=== PATIENT | female | born 2005 | race Caucasian/White ===

== ENCOUNTER → 2024-11-30 | Outpatient (CLI) | payer BC, SELFPAY ==
[2024-11-30 08:52] LABS: Collection Type, Urine Clean Catch
[2024-11-30 09:47] LABS: Amorphous Crystals,Urine Present (Absent); Bacteria,Urine 1+; Bilirubin,Urine Negative (Negative); Blood,Urine Negative (Negative); Clarity,Urine Clear (Clear/Hazy); Color,Urine Yellow (Lt Yel-Yel); Culture Indicated,Urine Contaminated; Glucose, Urine Negative (Negative); Ketones,Urine Negative (Negative); Leukocyte Esterase,Urine Negative (Negative); Nitrite,Urine Negative (Negative); PH,Urine 6.5 (5.0-7.0); Protein,Urine Negative (Neg - Trace); RBC,Urine 4 /hpf (0-3); Specific Gravity,Urine 1.029 (1.001-1.035); Squamous Epithelial Cell,Urine 12 /hpf (0-5); Urobilinogen,Urine Negative mg/dL (0.0-1.0); WBC,Urine 6 /hpf (0-5)
[2024-11-30 09:52] LABS: Glucose Estimated Average 103 mg/dL (80-131); Hemoglobin A1C 5.2 % Hgb (4.8-6.0)
[2024-11-30 09:54] LABS: Basophils # (Auto) 0.1 Thou/mm3 (0.0-0.2); Basophils % (Auto) 1 % (0-2.5); Eosinophils # (Auto) 0.2 Thou/mm3 (0.0-0.5); Eosinophils % (Auto) 2 % (0-10); Hematocrit 38.2 % (36.0-46.0); Hemoglobin 12.9 g/dL (12.0-16.0); Immature Granulocytes Auto 0.01 Thou/mm3 (0.00-0.00); Lymphocytes # (Auto) 3.1 Thou/mm3 (1.0-4.8); Lymphocytes % (Auto) 43 % (10-50); Mean Corpuscular HGB Conc 33.8 g/dl (31.0-37.0); Mean Corpuscular Hemoglobin 32.5 pg (25.0-35.0); Mean Corpuscular Volume 96 fL (80-100); Monocytes # (Auto) 0.6 Thou/mm3 (0.0-0.8); Monocytes % (Auto) 9 % (0-12); Neutrophils # (Auto) 3.2 Thou/mm3 (1.8-7.7); Neutrophils % (Auto) 45 % (37-80); Nucleated Red Blood Cell # 0.00 Thou/mm3 (0.00-0.00); Nucleated Red Blood Cell % 0 /100 WBC (0); Platelet Count 207 Thou/mm3 (140-440); RDW Standard Deviation 45.0 fL (36.4-46.3); Red Blood Count 3.97 Miln/mm3 (4.00-5.20); White Blood Count 7.2 Thou/mm3 (4.5-11.0)
[2024-11-30 10:01] LABS: Vitamin D 25 Hydroxy Total 40.4 ng/mL (7.3-40.2)
[2024-11-30 10:13] LABS: Alanine Aminotransferase 17 U/L (10-49); Albumin, Serum 4.1 gm/dL (3.5-5.0); Albumin/Globulin Ratio 1.4 (1.2-2.2); Alkaline Phosphatase 46 U/L (46-116); Anion Gap 11 (7-16); Aspartate Amino Transferase 23 U/L (0-34); BUN/Creatinine Ratio 10 Ratio (12-20); Bilirubin,Total 0.2 mg/dL (0.3-1.2); Blood Urea Nitrogen 10 mg/dL (9-23); Calcium 9.2 mg/dL (8.3-10.6); Calcium (Corrected) 9.2 mg/dL (8.5-10.1); Carbon Dioxide 25.3 mMol/L (20.0-31.0); Chloride 104 mMol/L (98-107); Creatinine (Component) 1.0 mg/dL (0.6-1.3); Globulin 2.9 gm/dL (2.3-3.5); Glucose 84 mg/dL (74-106); Osmolality,Calculated 277 (275-295); Potassium 4.0 mMol/L (3.4-5.1); Sodium 140 mMol/L (136-145); Thyroid Stimulating Hormone 2.64 uIU/mL (0.55-4.78); Total Protein 7.0 gm/dL (5.7-8.2); eGFR > 60 See Note
[2024-11-30 10:22] LABS: Syphilis Nonreactive (Nonreactive)
[2024-11-30 10:30] LABS: Cardiac Risk Estimate 2.0 RATIO (3.7-5.6); Cholesterol 149 mg/dL (132-200); HDL Cholesterol 73 mg/dL (40-60); LDL Cholesterol,Calculated 58 mg/dL (0-130); Triglycerides 90 mg/dL (30-150)
[2024-11-30 10:34] LABS: HIV (1&2) Antibody Rapid Non-Reactive
[2024-11-30 11:58] LABS: Chlamydia trachomatis PCR Negative (Not Detect); Neisseria Gonorrhoeae DNA PCR Negative (Not Detect); Trichomonas Negative (Negative)
== END | disposition home or self-care (01) ==
PROVIDERS: PCP Family Medicine; Referring Provider Registered Nurse; Visit Provider Registered Nurse
DX: Z00.00 Encounter for general adult medical examination without abnormal findings (principal); Z11.3 Encounter for screening for infections with a predominantly sexual mode of transmission
CPT/HCPCS: 36415; 80053; 80061; 81001; 82306; 83036; 84443; 85025; 86703; 86780; 87491; 87591; 87661

== ENCOUNTER 2024-12-23 03:11 | Emergency (ER) | payer BC, SELFPAY ==
[2024-12-23 03:13] VITALS: BMI 24.7
[2024-12-23 03:21] VITALS: BP 124/86; PULSE 86; RESP 18; TEMP 37.2; O2SAT 98
--- NOTE | 2024-12-23 03:46 | XR_ITS ---
Examination: CT abdomen and pelvis without contrast. Coronal 3-D reconstructions. Sagittal 2-D reconstructions. Date and time: December 23, 2024, 0452 hrs. Indications: Abdominal pain beginning 2 hours ago CTDI: vol (mGy): 6.45 DLP: (mGycm): 300 Technique: Axial images of the abdomen have been obtained, 3 mm slice thickness Intravenous contrast material has not been administered. Low dose protocols were performed. One or more of the following dose reduction techniques were used; automated exposure control, adjustment of the mA and/or KV according to patient size, use of iterative reconstruction technique. Findings: No focal liver lesions or biliary tract dilatation. No gallstones. No pancreatic or adrenal mass. No renal or ureteral calculi Aorta normal size. Normal appendix, cecum is in the pelvis Retroverted uterus Urinary bladder intact The osseous structures are intact Impression: No renal or ureteral calculi, no hydronephrosis Normal appendix No bowel obstruction diverticulitis or free air
--- NOTE | 2024-12-23 03:47 | PD.EDRME ---
Rapid Medical Screening Exam RME Arrival date/time: 12/23/24 03:11 This is a case of 19-year-old female with no medical history came in in the emergency room due to lower abdominal pain with nausea vomiting today worsening of the symptoms this patient decided to start consult here in the emergency room Chief Complaint: Abdominal Pain Time Seen by Provider: 12/23/24 03:20 Vital signs: Vital Signs Temperature 98.9 F 12/23/24 03:21 Pulse Rate 86 12/23/24 03:21 Respiratory Rate 18 12/23/24 03:21 Blood Pressure 124/86 H 12/23/24 03:21 Pulse Oximetry (%) 98 12/23/24 03:21 Oxygen Delivery Method Room Air 12/23/24 03:21
--- NOTE | 2024-12-23 04:05 | PD.EDABDPN ---
ED Abdominal Pain RME/HPI General Chief Complaint: Abdominal Pain Stated complaint: STOMACH PAIN FOR TWO HOURS Time seen by provider: 12/23/24 03:20 Arrival date/time: 12/23/24 03:11 RME / HPI RME / HPI narrative: 12/23/24 03:11 This is a case of 19-year-old female with no medical history came in in the emergency room due to lower abdominal pain with nausea vomiting today worsening of the symptoms this patient decided to start consult here in the emergency room Dr. Rubalcava?rory Main ED Evaluation: 19yo female presenting with sudden onset diffuse lower abdominal/pelvic pain with the sensation that something popped shortly [employer]. No preceding symptoms. No fever, chills, nausea, or vomiting. Pain is described as sharp, tends to worsen with movement and increasing valsalva. PMH/PSH unremarkable. Social history: occasional alcohol consumption, no illicit drug abuse. NKDA. Related Data Allergies Allergy/AdvReac Type Severity Reaction Status Date / Time No Known Allergies Allergy Verified 12/23/24 03:12 Review of Systems Review of Systems Systems Reviewed: All systems reviewed, normal except as documented Past Medical History Past Medical History CARDIAC: Negative Congestive Heart Failure RESPIRATORY: Negative Chronic Obstructive Pulmonary Disease (COPD) GENITOURINARY: Negative Renal Disease ENT: Positive Ear Infection ENDOCRINE: Negative Diabetes Mellitus Type 1 or Diabetes Mellitus Type 2 Surgical History SURGICAL: Positive Tympanostomy Tube Social History SMOKING STATUS: Unknown if ever smoked ED Exam Narrative Physical exam: GENERAL APPEARANCE: alert and oriented x 4, well-developed, well-nourished, nontoxic, no acute distress VITALS: All vitals were reviewed and the pulse ox is 98% on room air, which is normal according to my interpretation. HEENT: Normocephalic, atraumatic; pupils equal, round, reactive to light; EOMI; mucous membranes pink, moist; oropharynx clear NECK: Supple LUNGS: CTABL; no wheezes, no rales, no rhonchi HEART: Regular rate, regular rhythm; normal S1, S2; no murmurs ABDOMEN: non distended; soft, mild diffuse lower abdominal tenderness, epigastric/RUQ tenderness, no guarding, no peritoneal findings BACK: no CVA tenderness EXTREMITIES: atraumatic; no edema NEUROLOGIC: awake; alert and oriented x4; cranial nerves II-XII grossly intact; no focal sensory or motor deficits PSYCHIATRIC: appropriate mood and affect SKIN: warm, dry, normal color; no rashes Course Quality Measures none Orders Category Date Time Status CT abdomen pelvis wo con Stat Exams 12/23/24 03:46 Ordered Amylase Stat Lab 12/23/24 04:40 Received CBC Stat Lab 12/23/24 04:40 Completed Comprehensive Metabolic Panel Stat Lab 12/23/24 04:40 Received HCG Qualitative,Urine Stat Lab 12/23/24 04:22 Completed Urinalysis Stat Lab 12/23/24 04:22 Completed Morphine* Inj Med 12/23/24 04:19 Discontinued 4 mg IVP X1 ONE Ondansetron Inj [Zofran Inj] Med 12/23/24 04:19 Discontinued 4 mg IVP X1 ONE Vital Signs Vital signs: Vital Signs Temperature 98.9 F 12/23/24 03:21 Pulse Rate 86 12/23/24 03:21 Respiratory Rate 18 12/23/24 03:21 Blood Pressure 124/86 H 12/23/24 03:21 Pulse Oximetry (%) 98 12/23/24 03:21 Oxygen Delivery Method Room Air 12/23/24 03:21 Abdominal Pain MDM MDM Narrative MDM Narrative:: Scribe Attestation: 12/23/24 - Corina Jacob am scribing for and in the presence of Dr. Rubalcava. 19yo female presenting with sudden onset diffuse lower abdominal/pelvic pain with the sensation that something popped shortly [employer]. No preceding symptoms. Please see PE findings. Lab markers demonstrate normal WBC count, no anemia or thrombocytopenia. Chemistries pending. UA and HCG negative. IV will be established. I ordered normal saline, low-dose narcotic/antiemetics. Pending CT abdomen pelvis. Will endorse care to the morning physician. Dx: acute abdominal pain - unclear etiology Patient data External records reviewed:: [facility] previous records (Per chart review, patient has no previous ED visits or admissions to this facility.) Clinical information provided by:: patient Social determinants that could affect healthcare access:: none Patient has the following chronic illnesses:: none How is presenting disease/condition affected by chronic disease/condition?: no chronic disease Evaluation data The following diagnostics were reviewed and interpreted by me:: lab results and radiology exam(s) Lab and/or radiology exams considered but not ordered:: none Interpretation Summary: CT abdomen pelvis and labs pending at sign out. Medications / Prescriptions Medications or Prescriptions considered but not ordered:: none Medication administrations:: Medication Administration History Discontinued Medications Morphine Sulfate (Morphine Sulf Inj 4 Mg/Ml Vial) 4 mg IVP X1 ONE Stop: 12/23/24 04:20 Ondansetron HCl (Ondansetron Inj 2 Mg/Ml Inj 2 Ml) 4 mg IVP X1 ONE; Protocol Stop: 12/23/24 04:20 see above Consultations Consultation(s) initiated? (list below): No Diagnosis Differential diagnosis abdominal pain: constipation, diverticulitis, gastroenteritis and small bowel obstruction Most likely diagnosis given after review of the tests above:: final dx pending at signout. Admission Indicated Admission indicated?: not indicated Admission Request Was there a request for admission?: No Disposition Plan Disposition Plan: other (specify) (Signed out to Dr. Cat at 6 AM.) Discharge Plan Prescriptions/Referrals Referrals: Ellen Mckeon MD [Primary Care Provider, Family Practice] - In 1 week Problem List Clinical Impression: Abdominal pain Patient/Caregiver Discharge Instructions Print Language: Nepali
[2024-12-23 05:14] LABS: Collection Type, Urine Clean Catch
[2024-12-23 05:16] LABS: Basophils # (Auto) 0.1 Thou/mm3 (0.0-0.2); Basophils % (Auto) 1 % (0-2.5); Eosinophils # (Auto) 0.1 Thou/mm3 (0.0-0.5); Eosinophils % (Auto) 2 % (0-10); Hematocrit 40.5 % (36.0-46.0); Hemoglobin 13.9 g/dL (12.0-16.0); Immature Granulocytes Auto 0.02 Thou/mm3 (0.00-0.00); Lymphocytes # (Auto) 2.4 Thou/mm3 (1.0-4.8); Lymphocytes % (Auto) 36 % (10-50); Mean Corpuscular HGB Conc 34.3 g/dl (31.0-37.0); Mean Corpuscular Hemoglobin 32.6 pg (25.0-35.0); Mean Corpuscular Volume 95 fL (80-100); Monocytes # (Auto) 0.5 Thou/mm3 (0.0-0.8); Monocytes % (Auto) 8 % (0-12); Neutrophils # (Auto) 3.6 Thou/mm3 (1.8-7.7); Neutrophils % (Auto) 54 % (37-80); Nucleated Red Blood Cell # 0.00 Thou/mm3 (0.00-0.00); Nucleated Red Blood Cell % 0 /100 WBC (0); Platelet Count 253 Thou/mm3 (140-440); RDW Standard Deviation 45.0 fL (36.4-46.3); Red Blood Count 4.26 Miln/mm3 (4.00-5.20); White Blood Count 6.7 Thou/mm3 (4.5-11.0)
[2024-12-23 05:21] LABS: HCG Qualitative,Urine Negative
[2024-12-23 05:22] LABS: Bacteria,Urine Rare; Bilirubin,Urine Negative (Negative); Blood,Urine Negative (Negative); Clarity,Urine Clear (Clear/Hazy); Color,Urine Lt-Yellow (Lt Yel-Yel); Glucose, Urine Negative (Negative); Hyaline Casts,Urine < 1 /hpf (0-1); Ketones,Urine Negative (Negative); Leukocyte Esterase,Urine Negative (Negative); Nitrite,Urine Negative (Negative); PH,Urine 6.5 (5.0-7.0); Protein,Urine Negative (Neg - Trace); RBC,Urine 1 /hpf (0-3); Specific Gravity,Urine 1.015 (1.001-1.035); Squamous Epithelial Cell,Urine 3 /hpf (0-5); Urobilinogen,Urine Negative mg/dL (0.0-1.0); WBC,Urine 1 /hpf (0-5)
[2024-12-23 05:37] LABS: Alanine Aminotransferase 26 U/L (10-49); Albumin, Serum 4.4 gm/dL (3.5-5.0); Albumin/Globulin Ratio 1.5 (1.2-2.2); Alkaline Phosphatase 46 U/L (46-116); Amylase 61 U/L (30-118); Anion Gap 13 (7-16); Aspartate Amino Transferase 55 U/L (0-34); BUN/Creatinine Ratio 10 Ratio (12-20); Bilirubin,Total 0.2 mg/dL (0.3-1.2); Blood Urea Nitrogen 8 mg/dL (9-23); Calcium 9.0 mg/dL (8.3-10.6); Calcium (Corrected) 9.0 mg/dL (8.5-10.1); Carbon Dioxide 23.3 mMol/L (20.0-31.0); Chloride 106 mMol/L (98-107); Creatinine (Component) 0.8 mg/dL (0.6-1.3); Estimated Creatinine Clearance 100.7 mL/min (>60); Globulin 2.9 gm/dL (2.3-3.5); Glucose 80 mg/dL (74-106); Osmolality,Calculated 280 (275-295); Potassium 4.1 mMol/L (3.4-5.1); Sodium 142 mMol/L (136-145); Total Protein 7.3 gm/dL (5.7-8.2); eGFR > 60 See Note
[2024-12-23 06:06] VITALS: BP 115/94; PULSE 74; RESP 19; TEMP 36.9; O2SAT 100
--- NOTE | 2024-12-23 06:13 | PRELIM_ITS ---
CT scan of the abdomen and pelvis without intravenous contrast (axial sections with sagittal and coronal reformats) December 23, 2024 at 0541 hours Clinical History: Abdominal pain. Comparison: No prior study is available for comparison. Findings: The lung bases are clear. The liver, gallbladder, pancreas, spleen, kidneys and adrenals are unremarkable on this noncontrast study. No evidence of bowel obstruction. The appendix is within normal limits. There is no mesenteric or retroperitoneal adenopathy. The urinary bladder is unremarkable. There is no free fluid or free air. The osseous structures are unremarkable. The uterus and ovaries are within normal limits. Impression: No evidence of acute intra-abdominal or pelvic pathology. No evidence of kidney or ureteral stones Report Electronically Signed By: Carrington Santiago 12/23/2024 6:13:06 AM [EST]
[2024-12-23] MEDS: MORPHINE SULF INJ 4 MG/ML VIAL IVP (06:25)
[2024-12-23] MEDS: ONDANSETRON INJ 2 MG/ML INJ 2 ML 4 MG IVP (06:25)
--- NOTE | 2024-12-23 06:28 | EDNOTE_ITS ---
Emergency Room Addendum Addendum Narrative: 0600: Care assumed from Dr. aCvazos, the previous shift emergency physician. Past medical, surgical, social and family history reviewed. Vitals and home medications reviewed. I will assume the care of the patient at this time, pending diagnostic results and final disposition. Please refer to the emergency department record for history and examination from initial visit.? Physical exam by me shows patient under no acute distress at this time. 0730: Labs results are back and abdomen/ pelvis CT are all normal. Reevaluation at this time is patient is feeling better. Plan to discharge. 0740: Patient discharged with abdominal pain. Patient remains clinically stable throughout the emergency department visit. Re-assessment at the time of disposition demonstrates that the patient is in no acute distress. We reviewed all the results, analysis, and treatment plans. Patient is amenable to discharge. Strict return precautions were outlined. Patient was discharged in stable condition. Results Objective Laboratory: Laboratory Last Values WBC 6.7 Thou/mm3 (4.5-11.0) 12/23/24 04:40 RBC 4.26 Miln/mm3 (4.00-5.20) 12/23/24 04:40 Hgb 13.9 g/dL (12.0-16.0) 12/23/24 04:40 Hct 40.5 % (36.0-46.0) 12/23/24 04:40 MCV 95 fL (80-100) 12/23/24 04:40 MCH 32.6 pg (25.0-35.0) 12/23/24 04:40 MCHC 34.3 g/dl (31.0-37.0) 12/23/24 04:40 RDW Std Deviation 45.0 fL (36.4-46.3) 12/23/24 04:40 Plt Count 253 Thou/mm3 (140-440) D 12/23/24 04:40 Neut % (Auto) 54 % (37-80) 12/23/24 04:40 Lymph % (Auto) 36 % (10-50) 12/23/24 04:40 [place] % (Auto) 8 % (0-12) 12/23/24 04:40 Eos % (Auto) 2 % (0-10) 12/23/24 04:40 Baso % (Auto) 1 % (0-2.5) 12/23/24 04:40 Neut # (Auto) 3.6 Thou/mm3 (1.8-7.7) 12/23/24 04:40 Lymph # (Auto) 2.4 Thou/mm3 (1.0-4.8) 12/23/24 04:40 [place] # (Auto) 0.5 Thou/mm3 (0.0-0.8) 12/23/24 04:40 Eos # (Auto) 0.1 Thou/mm3 (0.0-0.5) 12/23/24 04:40 Baso # (Auto) 0.1 Thou/mm3 (0.0-0.2) 12/23/24 04:40 Immature Gran # (Auto) 0.02 Thou/mm3 (0.00-0.00) H 12/23/24 04:40 Absolute Nucleated RBC 0.00 Thou/mm3 (0.00-0.00) 12/23/24 04:40 Immature Gran % 0 % (0-0) 12/23/24 04:40 Nucleated RBC % 0 /100 WBC (0) 12/23/24 04:40 Sodium 142 mMol/L (136-145) 12/23/24 04:40 Potassium 4.1 mMol/L (3.4-5.1) 12/23/24 04:40 Chloride 106 mMol/L (98-107) 12/23/24 04:40 Carbon Dioxide 23.3 mMol/L (20.0-31.0) 12/23/24 04:40 Anion Gap 13 (7-16) 12/23/24 04:40 BUN 8 mg/dL (9-23) L 12/23/24 04:40 Creatinine 0.8 mg/dL (0.6-1.3) 12/23/24 04:40 Estim Creat Clear Calc 100.7 mL/min (>60) 12/23/24 04:40 eGFR > 60 See Note (60-) 12/23/24 04:40 BUN/Creatinine Ratio 10 Ratio (12-20) L 12/23/24 04:40 Glucose 80 mg/dL (74-106) 12/23/24 04:40 Calculated Osmolality 280 (275-295) 12/23/24 04:40 Calcium 9.0 mg/dL (8.3-10.6) 12/23/24 04:40 Corrected Calcium 9.0 mg/dL (8.5-10.1) 12/23/24 04:40 Total Bilirubin 0.2 mg/dL (0.3-1.2) L 12/23/24 04:40 AST 55 U/L (0-34) H 12/23/24 04:40 ALT 26 U/L (10-49) 12/23/24 04:40 Alkaline Phosphatase 46 U/L (46-116) 12/23/24 04:40 Total Protein 7.3 gm/dL (5.7-8.2) 12/23/24 04:40 Albumin 4.4 gm/dL (3.5-5.0) 12/23/24 04:40 Globulin 2.9 gm/dL (2.3-3.5) 12/23/24 04:40 Albumin/Globulin Ratio 1.5 (1.2-2.2) 12/23/24 04:40 Amylase 61 U/L (30-118) 12/23/24 04:40 Ur Collection Type Clean Catch 12/23/24 04:22 Urine Color Lt-Yellow (Lt Yel-Yel) 12/23/24 04:22 Urine Clarity Clear (Clear/Hazy) 12/23/24 04:22 Urine pH 6.5 (5.0-7.0) 12/23/24 04:22 Ur Specific [place] 1.015 (1.001-1.035) 12/23/24 04:22 Urine Protein Negative (Neg - Trace) 12/23/24 04:22 Urine Glucose (UA) Negative (Negative) 12/23/24 04:22 Urine Ketones Negative (Negative) 12/23/24 04:22 Urine Blood Negative (Negative) 12/23/24 04:22 Urine Nitrite Negative (Negative) 12/23/24 04:22 Urine Bilirubin Negative (Negative) 12/23/24 04:22 Urine Urobilinogen (Auto) Negative mg/dL (0.0-1.0) 12/23/24 04:22 Ur Leukocyte Esterase Negative (Negative) 12/23/24 04:22 Urine RBC 1 /hpf (0-3) 12/23/24 04:22 Urine WBC 1 /hpf (0-5) 12/23/24 04:22 Ur Squamous Epith Cells 3 /hpf (0-5) 12/23/24 04:22 Urine Bacteria Rare (None) 12/23/24 04:22 Hyaline Casts < 1 /hpf (0-1) 12/23/24 04:22 Urine HCG, Qual Negative 12/23/24 04:22 Imaging: Procedure(s): CT abdomen pelvis wo con Accession Number(s): [id number] cc: Yash Weeks MD; Ellen Mckeon MD; Chance MartinP~ Examination: CT abdomen and pelvis without contrast. Coronal 3-D reconstructions. Sagittal 2-D reconstructions. Date and time: December 23, 2024, 0452 hrs. Indications: Abdominal pain beginning 2 hours ago CTDI: vol (mGy): 6.45 DLP: (mGycm): 300 Technique: Axial images of the abdomen have been obtained, 3 mm slice thickness Intravenous contrast material has not been administered. Low dose protocols were performed. One or more of the following dose reduction techniques were used; automated exposure control, adjustment of the mA and/or KV according to patient size, use of iterative reconstruction technique. Findings: No focal liver lesions or biliary tract dilatation. No gallstones. No pancreatic or adrenal mass. No renal or ureteral calculi Aorta normal size. Normal appendix, cecum is in the pelvis Retroverted uterus Urinary bladder intact The osseous structures are intact Impression: No renal or ureteral calculi, no hydronephrosis Normal appendix No bowel obstruction diverticulitis or free air Dictated By: Yash Weeks MD
[2024-12-23 06:29] VITALS: BP 119/94; PULSE 75; RESP 16; O2SAT 100
[2024-12-23 07:50] VITALS: BP 111/79; PULSE 65; RESP 18; TEMP 37.1; O2SAT 100
[2024-12-23 08:00] VITALS: BP 111/79; PULSE 78; RESP 16; TEMP 36.9; O2SAT 99
== END 2024-12-23 08:00 | disposition home or self-care (01) ==
PROVIDERS: Nurse Practitioner Family; Emergency Provider Emergency Medicine; PCP Family Medicine
DX: R10.2 Pelvic and perineal pain (principal); R11.2 Nausea with vomiting, unspecified
CPT/HCPCS: 36415; 74176; 80053; 81001; 81025; 82150; 85025; 96374; 96375; 99283; J2270; J2405

== ENCOUNTER → 2025-01-01 | Outpatient (CLI) | payer BC, SELFPAY ==
--- NOTE | 2025-01-01 08:51 | XR_ITS ---
Examination: Pelvic ultrasound, transabdominal, complete Technique: Transabdominal ultrasound of the pelvis performed using grayscale imaging Date and time of exam: January 01, 2025 0938 hours INDICATIONS: Left lower pelvic pain beginning 2 weeks ago FINDINGS: Uterus not visualized Ovaries obscured by bowel gas IMPRESSION: Severely limited study secondary to bowel gas No pelvic mass demonstrated
--- NOTE | 2025-01-01 08:51 | XR_ITS ---
Examination: Transvaginal ultrasound of the pelvis, complete Technique: Transvaginal sonographic images pelvis performed using garcia scale imaging Exam date and time: December and 28/06/2024 0947 hours INDICATIONS: Left lower pelvic pain beginning 2 weeks ago. FINDINGS: Uterus 4.8 cm endometrial stripe 0.3 cm No uterine mass or intrauterine gestation. Right ovary 3.4 cm arterial flow. Left ovary 2.7 cm arterial flow. No fluid in the cul-de-sac IMPRESSION: Negative study.
--- NOTE | 2025-01-01 08:51 | XR_ITS ---
Examination: Abdomen sonogram, complete Date and time of exam: January 01, 2025 0927 hours INDICATIONS: Left lower abdominal and pelvic pain beginning 2 weeks ago. Technique: Multiple real-time grayscale transabdominal sonographic images of the abdomen have been obtained. Findings: Normal gallbladder. Normal common bile duct 0.2 cm Pancreatic head 1.2 cm Aorta not enlarged. Liver 12.4 cm no liver lesions Normal hepatopedal portal venous flow Patent IVC Right kidney 9.3 cm cortex 2.3 cm Left kidney 10.5 cm cortex 2.2 cm Moderate left renal parenchymal scar formation Spleen 9.7 cm IMPRESSION: Normal gallbladder Moderate left renal parenchymal scar formation
== END | disposition home or self-care (01) ==
PROVIDERS: PCP Family Medicine; Referring Provider Nurse Practitioner Family; Visit Provider Nurse Practitioner Family
DX: N28.89 Other specified disorders of kidney and ureter (principal); R10.32 Left lower quadrant pain
CPT/HCPCS: 76700; 76830; 76856